=== PATIENT | male | born 1980 | race Caucasian/White ===

== ENCOUNTER 2022-07-06 19:31 | Outpatient (CLI) | payer BC, SELFPAY | END 2022-07-06 19:32 | disposition home or self-care (01) | LOC: AMB 07-09 05:14 | PROVIDERS: Visit Provider Family Medicine | DX: K08.89 Other specified disorders of teeth and supporting structures (principal) | CPT/HCPCS: A0425; A0429 ==

== ENCOUNTER 2022-07-06 19:43 | Emergency (ER) | payer BC, SELFPAY ==
[2022-07-06 19:45] VITALS: BP 129/85; RESP 18; TEMP 35.8; BMI 32.5
--- NOTE | 2022-07-06 20:06 | PC.NURSE ---
nurses note-This RN chaperoned MD per his request.
--- NOTE | 2022-07-06 20:07 | ED_ITS ---
HPI - Dental/Oral General Chief complaint: Unspecified Complaint, Adult Stated complaint: Tooth Pain Time Seen by Provider: 07/06/22 19:59 History of Present Illness HPI Narrative: 42-year-old man presenting to the emergency department via EMS due to inability to obtain other means of transport from his residence at a senior care where he is staying in recovery from alcohol. Presents here with dental pain and apparently today had some blood coming from the area in question. Has not had any fever. Does have a history of some dental decay and 1 of these teeth cracked a week ago. There was no trauma otherwise. Is not having sensitive to pressure cold heat. Has been drinking tepid/warm water. Doing salt water rinses. Treatment with ibuprofen acetaminophen isn't quite alleviating his pain. Had been looking for a dentist. He is looking for some relief of pain. Nurse on-call for the senior care given the blood that was apparent today recommended he be further evaluated tonight hence this visit. He has not had any purulent drainage. Has noted little swelling. Teeth map: 1. eroded and cracked post aspect of tooth number 30 Related Data Home Medications Medication Instructions Recorded Confirmed hydroxyzine pamoate 25 mg PO BID PRN 07/06/22 07/06/22 paroxetine HCl 30 mg PO DAILY 07/06/22 07/06/22 Allergies Allergy/AdvReac Type Severity Reaction Status Date / Time Penicillins Allergy Severe Angioedema Verified 07/06/22 20:34 Review of Systems Status of ROS: Reports: 6 or more systems reviewed and unremarkable except as noted in History and below [facility] Medical History (Updated 07/06/22 @ 21:16 by Mehrdad Pink MD) Lumbago Methamphetamine addiction Uncomplicated alcohol dependence Surgical History (Updated 07/06/22 @ 20:16 by Jean-Pierre Mccullough RN) History of appendectomy Social History Smoking Status: Never smoker Do you use any of these nicotine containing products: Smokeless Tobacco How often do you have a drink containing alcohol: never How often do you have six or more drinks on one occasion: Never AUDIT-C Alcohol total score: 0 Non-prescribed substance use: denies use Exam Narrative: Exam Narrative: Pleasant. Serious affect. NAD, seated calmly. Speaking easily. Large well-healed scar at the upper left forehead. Cranial nerves 2-12 intact. Breathing easily. Neck is supple. There is no cervical lymphadenopathy. Oropharynx with various the eroded areas of dentition. Tooth number 30 in particular is the 1 in question. The backside of this looks to have freshly cracked away. The front side as well with an older crack/loss; darkened in this area. I do not appreciate regional swelling. No purulence or blood at this time. Cardiovascular with regular rate and rhythm Const: Vital Signs, click to edit/add: Vital Signs - 24 hr 07/06/22 19:45 Temperature 96.5 F L Respiratory Rate 18 Blood Pressure [12 9/85] 129/85 Oxygen Delivery Me thod Room Air Documenting provider has reviewed patient's vital signs: yes Course Course Hospital Course: He would like some relief of pain. Would appreciate an injection. We will proceed with this with bupivacaine in likely buccal block. We discussed also further pain management whether there are concerns of opiates for example. Apparently there are none. Reevaluation(s) Reevaluation #1: improved with initial injection but requesting a little more pain relief. proceded with posterior block and and another buccal block with full relief of pain. Vital Signs Vital signs: Initial Vital Signs Temperature 96.5 F L 07/06/22 19:45 Temperature Source Temporal Artery Scan 07/06/22 19:45 Respiratory Rate 18 07/06/22 19:45 Blood Pressure 129/85 07/06/22 19:45 Blood Pressure Mean 99 07/06/22 19:45 Blood Pressure Position Sitting 07/06/22 19:45 Oxygen Delivery Method 07/06/22 19:45 Vital Signs Temperature 96.5 F L 07/06/22 19:45 Respiratory Rate 18 07/06/22 19:45 Blood Pressure 129/85 07/06/22 19:45 Oxygen Delivery Method 07/06/22 19:45 Temperature 96.5 F L 07/06/22 21:32 Pulse Rate 88 07/06/22 21:32 Respiratory Rate 18 07/06/22 21:32 Blood Pressure 122/78 07/06/22 21:32 Pulse Oximetry 98 07/06/22 21:30 Oxygen Delivery Method 07/06/22 21:30 MDM - Dental/Oral MDM Narrative Medical decision making narrative: possibly infectious. Discharge Plan Discharge Clinical Impression: Dental caries, Dentalgia, Fracture of tooth Patient Disposition: Home, Self-Care Condition: Improved Additional Instructions: Consider packing or painting sensitive area with [employer] brand product? Can usually find at [facility] or other pharmacies. Stay hydrated. Warm packs to outer jaw? A little food can take up to 800 mg of ibuprofen per dose or alternatively up to 500 mg of naproxen twice a day. Either can be combined with up to 1000 mg of acetaminophen per dose. Keep in mind that the [place] has 325 mg of acetaminophen in each tablet. Try to limit tobacco chew. Be seen for marked increase in swelling, pain, fever, purulent drainage. Please call to these dental clinics to try to obtain cares soon as possible. Cephalexin and [place] from [facility] Prescriptions: No Action paroxetine HCl [Paxil] 30 mg PO DAILY hydroxyzine pamoate 25 mg PO BID PRN Stand Alone Forms: [facility] Info Instructions
[2022-07-06] MEDS: BUPIVACAINE 0.25% 30 ML INJECTION (21:10)
[2022-07-06 21:30] VITALS: BP 122/78; PULSE 88; RESP 18; TEMP 35.8; O2SAT 98
[2022-07-06 21:32] VITALS: BP 122/78; PULSE 88; RESP 18; TEMP 35.8
== END 2022-07-06 21:33 | disposition home or self-care (01) ==
PROVIDERS: Emergency Provider Family Medicine
DX: K03.81 Cracked tooth (principal); K02.9 Dental caries, unspecified
CPT/HCPCS: 64400; 99283; J3490

== ENCOUNTER 2022-07-09 11:35 | Emergency (ER) | payer BC, SELFPAY ==
[2022-07-09 11:43] VITALS: BP 139/93; PULSE 82; RESP 18; TEMP 36.6; O2SAT 100; BMI 31.7
[2022-07-09 11:51] VITALS: BP 139/93; PULSE 82; RESP 18; TEMP 36.6; O2SAT 100
--- NOTE | 2022-07-09 12:34 | ED_ITS ---
HPI - Dental/Oral General Chief complaint: Dental/Oral/Mouth Injury/Pain Stated complaint: Lower back right tooth pain Time Seen by Provider: 07/09/22 11:42 History of Present Illness HPI Narrative: Rajiv is a 42yo male patient who returns to the ED for continued complaints of tooth pain associated with severe dental caries and broken tooth. The patient was previously given antibiotic and [place] for pain control. The patient has taken this medication and is now out of pain medications. He has a dental appointment scheduled for 6 days from today. The patient denies fever, chills, or sweats. The patient denies nausea, vomiting, or abdominal pain. The patient denies sore throat. The patient denies change in taste, discharge, or blood. The patient reports the pain is worsened with eating and extremes of temperatures. The patient has no other acute concern or complaint. Teeth map: 1. Broken, decayed tooth. Related Data Home Medications Medication Instructions Recorded Confirmed hydroxyzine pamoate 25 mg PO BID PRN 07/06/22 07/06/22 paroxetine HCl 30 mg PO DAILY 07/06/22 07/06/22 Previous Rx's Medication Instructions Recorded lidocaine HCl 2 % mucosal solution 1 applic mucous membrane Q8H PRN 07/09/22 (Lidocaine Viscous) pain #100 mL Allergies Allergy/AdvReac Type Severity Reaction Status Date / Time Penicillins Allergy Severe Angioedema Verified 07/06/22 20:34 Review of Systems Narrative: See HPI. [facility] Medical History (Updated 07/09/22 @ 12:36 by Barbara Holguin DO) Lumbago Methamphetamine addiction Uncomplicated alcohol dependence Surgical History (Updated 07/06/22 @ 20:16 by Jean-Pierre Mccullough RN) History of appendectomy Social History Smoking Status: Never smoker Do you use any of these nicotine containing products: Smokeless Tobacco How often do you have a drink containing alcohol: never How often do you have six or more drinks on one occasion: Never AUDIT-C Alcohol total score: 0 Non-prescribed substance use: denies use Exam Const: Vital Signs, click to edit/add: Vital Signs - 24 hr 07/09/22 11:43 07/09/22 11:51 Temperature 97.8 F 97.8 F Pulse Rate [Pulse Oximeter] 82 82 Respiratory Rate 18 18 Blood Pressure [Le ft Upper Arm] 139/93 H 139/93 H Pulse Oximetry 100 100 Oxygen Delivery Me thod Room Air Room Air Documenting provider has reviewed patient's vital signs: yes Common normals: no apparent distress, oriented x3, no limitations, healthy appearing, alert and well nourished General appearance: cooperative, comfortable, well kempt and well developed; not in distress HENMT: Common normals: normocephalic, head/scalp atraumatic, hearing grossly normal bilaterally and TM's normal bilaterally Head and scalp: normocephalic and atraumatic Face and sinus: normal facial exam and sinuses nontender Tympanic membrane: TM's normal bilaterally Mouth: oral and palatal mucosa normal, lip normal and tongue normal Teeth and gingiva: caries and poor dentition Neck & C-Spine: Common normals: full ROM, no lymphadenopathy and supple Resp: Common normals: normal respiratory effort, no retractions, no use of accessory muscles and clear to auscultation bilaterally Effort & inspection: able to speak in complete sentences Auscultation: clear to auscultation bilaterally Cardio: Common normals: regular rate, regular rhythm, S1 normal heart sound, S2 normal heart sound, no gallops, no clicks and no murmurs Rate: regular rate Rhythm: regular rhythm Heart sounds: S1 normal and S2 normal Neuro: Common normals: oriented x3 Sensorium/orientation: alert Psych: Common normals: mental status grossly normal, cooperative, affect normal, speech normal and activity/motor behavior normal Appearance: well kempt Attitude: calm Speech: normal speech Skin: Common normals: no rashes or lesions noted General skin exam: no rashes or lesions noted Course Course Hospital Course: Rajiv returns for pain control with known diagnosis of dental caries and poor dentition. The patient has scheduled appointment for the dentist. He has no ot her acute concerns or complaints today. He continues on antibiotic, as prescribed approximately 3 days prior. Vital Signs Vital signs: Initial Vital Signs Temperature 97.8 F 07/09/22 11:43 Temperature Source Temporal Artery Scan 07/09/22 11:43 Pulse Rate 82 07/09/22 11:43 Respiratory Rate 18 07/09/22 11:43 Blood Pressure 139/93 H 07/09/22 11:43 Blood Pressure Mean 108 07/09/22 11:43 Blood Pressure Position Sitting 07/09/22 11:43 Pulse Oximetry 100 07/09/22 11:43 Oxygen Delivery Method 07/09/22 11:43 Vital Signs Temperature 97.8 F 07/09/22 11:43 Pulse Rate 82 07/09/22 11:43 Respiratory Rate 18 07/09/22 11:43 Blood Pressure 139/93 H 07/09/22 11:43 Pulse Oximetry 100 07/09/22 11:43 Oxygen Delivery Method 07/09/22 11:43 Temperature 97.8 F 07/09/22 11:51 Pulse Rate 82 07/09/22 11:51 Respiratory Rate 18 07/09/22 11:51 Blood Pressure 139/93 H 07/09/22 11:51 Pulse Oximetry 100 07/09/22 11:51 Oxygen Delivery Method 07/09/22 11:51 Discharge Plan Discharge Clinical Impression: Dental caries, Dentalgia, Fracture of tooth Patient Disposition: Home, Self-Care Condition: Stable Instructions: Toothache (ED) Additional Instructions: Thank you for choosing [facility] for your care today. Increase fluids. Take Tylenol or Ibuprofen (or substitutes) as needed for pain relief. In addition, use OTC Clove Oil soaked cotton swabs in addition to the viscous lidocaine for pain relief. [place] has also been effective in treating oral pain using fresh leaves or packaged tinctures. Continue antibiotic as directed. Follow-up with dental health provider for further treatment and management as scheduled. If new or worsening symptoms develop or you have any concerns in the meantime, please call your primary care clinic or return to the ER for re- evaluation. Activity Level: No Restrictions Discharge Diet: Regular Prescriptions: New lidocaine HCl [Lidocaine Viscous] 2 % solution 1 applic mucous membrane Q8H PRN (Reason: pain) Qty: 100 0RF No Action paroxetine HCl [Paxil] 30 mg PO DAILY hydroxyzine pamoate 25 mg PO BID PRN Follow Up/Referrals: Provider,Not a Local [Primary Care Provider] - Stand Alone Forms: [employer] Info Instructions
== END 2022-07-09 12:45 | disposition home or self-care (01) ==
PROVIDERS: Emergency Provider Family Medicine
DX: S02.5XXA Fracture of tooth (traumatic), initial encounter for closed fracture (principal); K02.9 Dental caries, unspecified
CPT/HCPCS: 99281; 99283; 99284; A9270